=== PATIENT | female | born 1995 | race Caucasian/White ===

== ENCOUNTER 2020-07-27 11:57 | Outpatient (CLI) | payer OTHER ==
[2020-07-27 13:45] LABS: Appearance,Urine Clear (Clear); Bilirubin,Urine Negative (Negative); Blood,Urine Negative (Negative); Color,Urine Colorless; Glucose,Urine (UA) Negative (Negative); Ketones,Urine Negative (Negative); Leukocyte Esterase,Urine Negative (Negative); Nitrite,Urine Negative (Negative); Protein,Urine Negative (Negative); Specific Gravity,Urine 1.005 (1.001-1.035); Urobilinogen,Urine <2.0 mg/dL (<2.0)
[2020-07-27 14:18] VITALS: BP 134/80; PULSE 94; RESP 18; TEMP 97.6
--- NOTE | 2020-10-19 07:53 | P.MSEPDOC ---
Presenting Problems - Arrival Data Date of Arrival on Unit: 07/27/20 Time of Arrival on Unit: 12:00 Mode of Transport: Ambulatory - Complaint OB-Reason for Admission/Chief Complaint: Other Comment: Greenish thick mucousy discharge. Medical History - Information : 4 Para: 2 Term: 2 : 0 Abortions: Spontaneous or Elective: 1 Number of Living Children: 2 - Gestational Age Gestational Age by ZIYAD (wks/days): 19 Weeks and 5 Days Review of Systems - Review of Systems Constitutional: No problems Breast: No problems ENT: No problems Cardiovascular: No problems Respiratory: No problems Gastrointestinal: No problems Genitourinary: No problems Musculoskeletal: No problems Neurological: No problems Skin: No problems Vital Signs - Temperature Temperature: 97.6 F Temperature Source: Temporal Artery Scan - Pulse Pulse Oximetery Pulse Rate: 94 Pulse Assessment Method: Automatic Cuff - Respirations Respiratory Rate: 18 O2 Sat by Pulse Oximetry: 99 - Blood Pressure Right Arm Sitting Blood Pressure: 134/80 Blood Pressure Mean: 98 Blood Pressure Source: Automatic Cuff Medical Screen Scoring (Pre) - Cervical Exam Dilation: 0 cm = 0 Membranes: Intact - Uterine Contractions Frequency: N/A Duration: N/A Intensity: N/A - Maternal Vital Signs Maternal Temperature: N/A Maternal Blood Pressure: N/A Signs of Preeclampsia: N/A Maternal Respirations: N/A - Maternal Trauma Maternal Trauma: N/A - Assessment - Baby A Baseline FHR: 140 - Total Score - Baby A Total Score - Baby A: 0 - Total Score - Baby B Total Score - Baby B: 0 - Total Score - Baby C Total Score - Baby C: 0 - Level of Risk - Baby A Level of Risk - Baby A: Low (0-5) - Level of Risk - Baby B Level of Risk - Baby B: Low (0-5) - Level of Risk - Baby C Level of Risk - Baby C: Low (0-5) Physician Notification (Pre) - Physician Notified Physician Notified Date: 07/27/20 Physician Notified Time: 14:00 New Order Received: Yes Disposition - Disposition OB Disposition: Physician follow up in office, Discharge to home, Written follow up instructions reviewed Discharge Date: 07/27/20 Discharge Time: 14:03 I agree with the RN Medical Screening Exam: Yes Case reviewed; plan agreed upon as documented in EMR&OBIX.: Yes Comments: Patient was neither seen nor examined by me Diagnosis: RELATED CONDITIONS, UNSPECIFIED, SECOND TRIMESTER
== END 2020-07-27 14:03 | disposition home or self-care (01) ==
LOC: FBPOP 11:57
PROVIDERS: ATTEND Obstetrics & Gynecology
DX: O26.92 Pregnancy related conditions, unspecified, second trimester (principal); Z3A.19 19 weeks gestation of pregnancy
CPT/HCPCS: 81003

== ENCOUNTER 2020-11-04 15:39 | Emergency (ER) | payer OTHER ==
[2020-11-04 15:46] VITALS: RESP 18; TEMP 98.1
[2020-11-04] MEDS ORDERED: LIDOCAINE 1% INJ 10MG/ML (20 ML MDV) SQ ONE (16:21)
[2020-11-04] MEDS ORDERED: CLINDAMYCIN 150 MG CAP PO STA (17:20)
--- NOTE | 2020-11-04 17:20 | ED ---
General Adult HPI - General Chief complaint: Skin/Abscess/Foreign Body Stated complaint: Abscess on buttock,35 weeks Source: patient Mode of arrival: ambulatory Limitations: no limitations - History of Present Illness Initial comments: 25-year-old female presents to the emergency room for a chief complaint of abscess on the left buttock. Patient states she noticed this about 4 days ago. States that she went to urgent care 3 days ago in the gave her Keflex. Patient reports she does have a history of MRSA. She reports no incision and drainage was performed. Patient denies fevers or chills. She states that it does not seem to be getting better with just the Keflex. Patient is 35 weeks as well.Patient has no other complaints at this time including shortness of breath, chest pain, abdominal pain, nausea or vomiting, headache, or visual changes. - Related Data Home Medications Medication Instructions Recorded Confirmed Aspirin [Adult Low Dose Aspirin EC] 81 mg PO DAILY 07/27/20 07/27/20 Pnv No.95/Ferrous Fum/Folic AC 1 each PO DAILY 07/27/20 07/27/20 [ Multivitamin Tablet] Previous Rx's Medication Instructions Recorded Clindamycin [Cleocin] 450 mg PO Q8H 7 Days #63 cap 11/04/20 Allergies Allergy/AdvReac Type Severity Reaction Status Date / Time No Known Allergies Allergy Verified 11/04/20 15:46 Review of Systems ROS Statement: Those systems with pertinent positive or pertinent negative responses have been documented in the HPI. ROS Other: All systems not noted in ROS Statement are negative. Past Medical History Past Medical History: No Reported History History of Any Multi-Drug Resistant Organisms: MRSA Date of last positivie culture/infection: 2010 MDRO Source:: Buttock Past Surgical History: No Surgical Hx Reported Past Anesthesia/Blood Transfusion Reactions: No Reported Reaction Past Psychological History: No Psychological Hx Reported Smoking Status: Former smoker Past Alcohol Use History: None Reported Past Drug Use History: None Reported - Past Family History Mother Family Medical History: Hypertension General Exam Limitations: no limitations General appearance: alert, in no apparent distress Head exam: Present: atraumatic, normocephalic, normal inspection Eye exam: Present: normal appearance, PERRL, EOMI. Absent: scleral icterus, conjunctival injection, periorbital swelling ENT exam: Present: normal exam, mucous membranes moist Neck exam: Present: normal inspection, full ROM. Absent: tenderness, meningismus, lymphadenopathy Respiratory exam: Present: normal lung sounds bilaterally. Absent: respiratory distress, wheezes, rales, rhonchi, stridor Cardiovascular Exam: Present: regular rate, normal rhythm, normal heart sounds. Absent: systolic murmur, diastolic murmur, rubs, gallop, clicks GI/Abdominal exam: Present: soft, normal bowel sounds. Absent: distended, tenderness, guarding, rebound, rigid Back exam: Present: other (Patient has a 2 cm x 2 cm abscess noted to the inferior left buttock. This does not involve the anus or rectum. There is minimal erythema surrounding the area. Erythema or abscess does not spread to the perineum) Course Vital Signs 11/04/20 15:43 Temperature 98.1 F Pulse Rate 115 H Respiratory 18 Rate Blood Pressure 116/83 O2 Sat by Pulse 96 Oximetry Procedures - Incision & Drainage Consent Obtained: verbal consent Indication: abscess Site: buttock Size (cm): 2 Anesthetic Used: lidocaine 1% Amount (mLs): 1 I&D Cleaning Method: Chloroprep Sterile Field Used?: Yes Scalpel Used: #11 I&D Drainage Obtained: Pus, Blood Packing: Iodoform Patient Tolerated Procedure: well, no complications Medical Decision Making - Medical Decision Making Patient has abscess of the left buttock. It is not perianal or rectal. No fevers. Patient was put on Keflex without incision or drainage 3 days ago she does have a history of MRSA. Patient is 35 weeks . I was able to incise and drain the area, purulent material expelled. Culture pending. I will switch patient from cleft flex to clindamycin as this is generally safe in with a category B rating. This will cover for MRSA as she does have a history. Discussed warm compresses and sits baths. Discussed monitoring for worsening symptoms and returning if these occur. She will otherwise follow up with primary care or CURATORIAL ASSISTANT. I discussed this case with attending Dr. Andrews who agrees with this assessment and treatment plan. Disposition Clinical Impression: Abscess Disposition: HOME SELF-CARE Condition: Good Instructions (If sedation given, give patient instructions): Abscess Incision and Drainage (ED) Additional Instructions: Please take antibiotics as directed. Please apply warm compresses or do warm baths several times daily to promote drainage. If gauze does not come out of wound in the next 2-3 days remove it by gently pulling on it herself. Take clindamycin instead of Keflex. Follow-up with your doctor in one to 2 days for a recheck. If symptoms are worsening, abscess is getting bigger, redness is spreading, or getting fevers, or any other worsening symptoms return to the ER. Prescriptions: Clindamycin [Cleocin] 450 mg PO Q8H 7 Days #63 cap Is patient prescribed a controlled substance at d/c from ED?: No Referrals: Tirston Villegas MD [Primary Care Provider] - 1-2 days Time of Disposition: 17:19
[2020-11-04 17:34] VITALS: BP 106/61; PULSE 89
== END 2020-11-04 17:35 | disposition home or self-care (01) ==
LOC: EC 15:39
DX: O99.713 Diseases of the skin and subcutaneous tissue complicating pregnancy, third trimester (principal); L02.31 Cutaneous abscess of buttock; Z86.14 Personal history of Methicillin resistant Staphylococcus aureus infection; Z87.891 Personal history of nicotine dependence; Z79.899 Other long term (current) drug therapy; Z3A.35 35 weeks gestation of pregnancy
CPT/HCPCS: 87070; 87205; 10060; 99283; J2001

== ENCOUNTER 2020-11-06 12:58 | Outpatient (CLI) | payer OTHER ==
[2020-11-06 14:59] VITALS: BP 138/80; PULSE 101; RESP 16; TEMP 97.7
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
== END 2020-11-06 14:47 | disposition home or self-care (01) ==
LOC: FBPOP 12:58
PROVIDERS: ATTEND Obstetrics & Gynecology
DX: O26.893 Other specified pregnancy related conditions, third trimester (principal); T14.90XA Injury, unspecified, initial encounter; Z3A.34 34 weeks gestation of pregnancy
CPT/HCPCS: 59025; G0463; 99213

== ENCOUNTER 2020-12-06 09:59 | Outpatient (CLI) | payer OTHER ==
[2020-12-06 10:46] VITALS: BP 114/68; PULSE 98; RESP 18; TEMP 97.5
--- NOTE | 2020-12-27 02:24 | P.MSEPDOC ---
Presenting Problems - Arrival Data Date of Arrival on Unit: 12/06/20 Time of Arrival on Unit: 09:55 Mode of Transport: Ambulatory - Complaint OB-Reason for Admission/Chief Complaint: Rule Out SROM Comment: leaking at 0400 with irregular contractions Medical History - Information : 3 Para: 2 Term: 2 : 0 Abortions: Spontaneous or Elective: 0 Number of Living Children: 2 - Gestational Age Gestational Age by ZIYAD (wks/days): 38 Weeks and 4 Days - History Comment: hx of preeclampsia, on ASA Review of Systems - Review of Systems Constitutional: No problems Breast: No problems ENT: No problems Cardiovascular: No problems Respiratory: No problems Gastrointestinal: No problems Genitourinary: No problems Musculoskeletal: No problems Neurological: No problems Skin: No problems Vital Signs - Temperature Temperature: 97.5 F Temperature Source: Oral - Pulse Right Sitting Brachial Pulse Rate: 98 Pulse Assessment Method: Automatic Cuff - Respirations Respiratory Rate: 18 Oxygen Delivery Method: Room Air O2 Sat by Pulse Oximetry: 98 - Blood Pressure Right Arm Sitting Blood Pressure: 114/68 Blood Pressure Mean: 83 Blood Pressure Source: Automatic Cuff Medical Screen Scoring (Pre) - Cervical Exam Dilation: 1-3 cm = 1 Effacement: More than 50% = 2 Membranes: Intact - Uterine Contractions Frequency: > 5 minutes apart = 1 Duration: N/A Intensity: N/A - Maternal Vital Signs Maternal Temperature: N/A Maternal Blood Pressure: N/A Signs of Preeclampsia: N/A Maternal Respirations: N/A - Maternal Trauma Maternal Trauma: N/A - Assessment - Baby A Baseline FHR: 125 Heart Rate - NICHD Category: Category I (Normal) = 0 NST: Reactive Position: N/A - Total Score - Baby A Total Score - Baby A: 4 - Total Score - Baby B Total Score - Baby B: 4 - Total Score - Baby C Total Score - Baby C: 4 - Level of Risk - Baby A Level of Risk - Baby A: Low (0-5) - Level of Risk - Baby B Level of Risk - Baby B: Low (0-5) - Level of Risk - Baby C Level of Risk - Baby C: Low (0-5) Physician Notification (Pre) - Physician Notified Physician Notified Date: 12/06/20 Physician Notified Time: 01:40 New Order Received: Yes - Notification Comment Comment: amnisure neg. cx unchanged. ok to dc home. follow up in the office tomorrow at 1045 as scheduled. Disposition - Disposition OB Disposition: Discharge to home Discharge Date: 12/06/20 Discharge Time: 10:42 I agree with the RN Medical Screening Exam: Yes Case reviewed; plan agreed upon as documented in EMR&OBIX.: Yes Diagnosis: FALSE LABOR AT OR AFTER 37 COMPLETED WEEKS OF GESTATION
== END 2020-12-06 10:45 | disposition home or self-care (01) ==
LOC: FBPOP 09:59
PROVIDERS: ATTEND Obstetrics & Gynecology
DX: O47.1 False labor at or after 37 completed weeks of gestation (principal); Z3A.38 38 weeks gestation of pregnancy
CPT/HCPCS: 59025; 84112; G0463; 99213

== ENCOUNTER 2020-12-11 06:15 | Inpatient (IN) | payer OTHER ==
[2020-12-11] MEDS ORDERED: METHYLERGONOVINE 0.2 MG/ML 1 ML AMP IM PRN (06:53)
[2020-12-11] MEDS ORDERED: CARBOPROST TROMETHAMINE 250 MCG/ML 1 ML AMP IM PRN (06:53)
[2020-12-11] MEDS ORDERED: TERBUTALINE 1 MG/ML VIAL SQ PRN (06:53)
[2020-12-11] MEDS ORDERED: PENICILLIN G POTASSIUM 5,000,000 UNIT in DEXTROSE 5% IN WATER 100 ML IVPB STA ×4 (06:53→07:52)
[2020-12-11] MEDS ORDERED: LIDOCAINE 0.5% (PF) 5 MG/ML (50 ML SDV) SQ PRN (06:53)
[2020-12-11] MEDS ORDERED: OXYTOCIN 10 UNIT/ML 1 ML VIAL IM PRN (06:53)
[2020-12-11] MEDS: LACTATED RINGERS 1,000 ML IV SCH ×3 (07:29→15:14)
[2020-12-11] MEDS: OXYTOCIN 30 UNITS/500 ML NS 30 UNIT in SALINE 1 500ML.BAG IV SCH ×2 (07:31→20:50)
[2020-12-11 08:04] LABS: Basophils % (A) 0 %; Eosinophils # (A) 0.1 k/uL (0-0.7); Eosinophils % (A) 2 %; HCT 32.8 % (34.0-46.0); HGB 11.1 gm/dL (11.4-16.0); Lymphocytes # (A) 1.8 k/uL (1.0-4.8); Lymphocytes % (A) 25 %; MCHC 33.8 g/dL (31.0-37.0); MCV 88.8 fL (80.0-100.0); Mean Platelet Volume 8.1; Monocytes # (A) 0.5 k/uL (0-1.0); Monocytes % (A) 7 %; Neutrophils # (A) 4.6 k/uL (1.3-7.7); Neutrophils % (A) 65 %; Platelet Count 247 k/uL (150-450); RBC 3.69 m/uL (3.80-5.40); WBC 7.1 k/uL (3.8-10.6)
--- NOTE | 2020-12-11 08:07 | P.HPOB ---
History of Present Illness H&P Date: 12/11/20 Chief Complaint: Here for elective induction of labor This is a 25-year-old white female 4 para 2012 EDC 12/16/2020 at 39-2/7 weeks' gestation. Fetus is been active throughout the . She denies vaginal bleeding or fluid leakage. Obstetric history is significant for blood type A positive, rubella status immune. VDRL testing, urine culture, hepatitis B surface antigen, HIV testing, gonorrhea and chlamydia cultures all negative. 24 hour urine with increased protein. Group B strep cultures negative. One-hour Glucola within normal limits. Past medical history is significant for MRSA of the buttocks in 2010, borderline hypertension. Surgical history significant for wisdom teeth extracted in the past. Current medications vitamins daily. ALLERGIES none known. Family history significant for hypertension. Obstetric history 2 previous vaginal deliveries at 39 weeks gestation, unremarkable. 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 She denies alcohol or drug use. On exam patient is 5 foot 5 inches, 208 pounds, blood pressure 120/76 on admission. Vital signs are stable and she is afebrile. General physical exam is within normal limits. Cervix is 2-3 cm dilated, 60% effaced, -2 station, vertex presentation. Artificial amniorrhexis reveals clear fluid. heart tones consistent with reactive NST. Impression: 39-2/7 weeks intrauterine , positive group B strep cultures, here for elective induction of labor. All signs reassuring. History of chronic proteinuria, and preeclampsia noted in the past. Plan: Oxytocin per hospital protocol. Close maternal and surveillance. Antibiotic prophylaxis for positive group B strep cultures. Anticipate normal spontaneous vaginal delivery. Review of Systems All systems: negative Constitutional: Reports as per HPI Past Medical History Past Medical History: Hypertension Additional Past Medical History / Comment(s): Pt states her primary doctor has her on "water pill" when not History of Any Multi-Drug Resistant Organisms: MRSA Date of last positivie culture/infection: 10/09/20 MDRO Source:: Buttock Past Surgical History: No Surgical Hx Reported Past Anesthesia/Blood Transfusion Reactions: No Reported Reaction Past Psychological History: No Psychological Hx Reported Smoking Status: Never smoker Past Alcohol Use History: None Reported Past Drug Use History: None Reported - Past Family History Mother Family Medical History: Hypertension Medications and Allergies Home Medications Medication Instructions Recorded Confirmed Type Aspirin [Adult Low Dose Aspirin EC] 81 mg PO DAILY 07/27/20 12/11/20 History Pnv No.95/Ferrous Fum/Folic AC 1 each PO DAILY 07/27/20 12/11/20 History [ Multivitamin Tablet] Allergies Allergy/AdvReac Type Severity Reaction Status Date / Time No Known Allergies Allergy Verified 11/06/20 13:16 Exam Vital Signs Temp Pulse Resp BP Pulse Ox 12/11/20 06:51 96.6 F L 76 16 120/76 99 Intake and Output 12/10/20 12/11/20 12/11/20 22:59 06:59 14:59 Other: Weight 94.347 kg See dictation under HPI please Assessment and Plan Assessment: 39-2/7 weeks intrauterine , positive group B strep cultures, here for elective induction of labor. Blood pressure and all other signs reassuring. Plan: Penicillin G per hospital protocol. Oxytocin per hospital protocol. Close mate rnal and surveillance. Anticipate normal spontaneous vaginal delivery. Time with Patient: Less than 30
[2020-12-11] MEDS: PENICILLIN G POTASSIUM 2,500,000 UNIT in DEXTROSE 5% IN WATER 100 ML IVPB SCH ×6 (12:30→20:38)
[2020-12-11] MEDS ORDERED: fentaNYL (PF) 50 MCG/ML 5 ML AMP ONE (12:44)
[2020-12-11] MEDS ORDERED: ROPIVACAINE 5MG/ML 20ML VIAL ONE (12:44)
[2020-12-11] MEDS ORDERED: SODIUM CHLORIDE 0.9% 100 ML BAG ONE (12:44)
[2020-12-11] MEDS ORDERED: diphenhydrAMINE ELIXIR 25 MG/10 ML CUP PO PRN (19:07)
[2020-12-11] MEDS ORDERED: BENZOCAINE/MENTHOL SPRAY 1 GM/SPRAY AEROSOL TOPICAL PRN (19:07)
[2020-12-11] MEDS ORDERED: SIMETHICONE 80 MG CHEWABLE PO PRN (19:07)
[2020-12-11] MEDS ORDERED: diphenhydrAMINE 50 MG CAP PO PRN (19:07)
[2020-12-11] MEDS ORDERED: diphenhydrAMINE 25 MG CAP PO PRN (19:07)
[2020-12-11] MEDS ORDERED: HYDROCORTISONE 2.5% RECTAL CREAM 30 GM TUBE RECTAL PRN (19:07)
[2020-12-11] MEDS ORDERED: LANOLIN CREAM 5 GM TUBE TOPICAL PRN (19:07)
[2020-12-11] MEDS ORDERED: diphenhydrAMINE 50 MG/ML 1 ML VIAL IVP PRN ×2 (19:07)
[2020-12-11] MEDS ORDERED: ZOLPIDEM 5 MG TAB PO PRN (19:07)
--- NOTE | 2020-12-11 19:07 | P.PROBDLV ---
Vaginal Delivery Note - . Vaginal Delivery Note: This is a 25-year-old white female 4 para 2012 EDC 12/16/2020 at 39-2/7 weeks' gestation. Patient presented for induction with favorable multiparous cervix. She has a history of preeclampsia with previous pregnancies, blood pressure normal currently. Elevated urinary protein has been documented. Blood type A+, group B strep cultures positive, rubella status immune. Please see dictated history and physical for details. Artificial amniorrhexis revealed clear fluid. Oxytocin was started and titrated per hospital protocol. Patient became uncomfortable and requested an epidural, this was placed without difficulty. She became completely dilated at 1845 hrs. and began the second stage of labor at that time. heart rate was reassuring throughout the first and second stages of labor. With excellent maternal expulsive efforts after perineal body was prepped and draped, infant's head delivered occiput anterior and she restituted accordingly. There was no nuchal cord noted. The left or anterior shoulder was delivered from underneath the pubic symphysis at which time the oropharynx, nasopharynx, and external nares are bulb suctioned. Patient is officially delivered of a liveborn female at 1852 hours. Umbilical cord is doubly clamped and ligated, she is handed to waiting nurses for evaluation where scores of 9 and 9 at one and 5 minutes respectively are given. Placentas delivered spontaneously, it is inspected and noted to be intact with trivascular cord at 1856 hours. At this time the perineal body is redraped. Uterus is massaged. Careful inspection of the cervix, vagina, perineum, periurethral, and perirectal areas revealed a 1 skin trae on the right inner labia minora. It is now bleeding and therefore left to heal by secondary intention. Total estimated blood loss 250 mL's. All sponge needle and enhancement counts are correct. Patient and her are allowed to begin the bonding experience in the LDR.
[2020-12-11] MEDS: IBUPROFEN 600 MG TAB PO SCH (20:49)
[2020-12-11] MEDS: SENNOSIDES-DOCUSATE SODIUM 1 EACH TAB PO SCH (20:49)
[2020-12-11] MEDS: ACETAMINOPHEN TAB 325 MG TAB PO PRN (23:41)
[2020-12-12] MEDS: IBUPROFEN 600 MG TAB PO SCH ×4 (02:32→17:32)
[2020-12-12] MEDS: SENNOSIDES-DOCUSATE SODIUM 1 EACH TAB PO SCH ×2 (08:20→21:02)
[2020-12-12] MEDS: ACETAMINOPHEN TAB 325 MG TAB PO PRN ×3 (08:21→21:02)
--- NOTE | 2020-12-12 08:47 | P.DS ---
Providers Date of admission: 12/11/20 06:15 Expected date of discharge: 12/12/20 Attending physician: Maude Miller Primary care physician: Stated None Hospital Course: This is a 25-year-old white female 4 para 2012 EDC 12/16/2020 at 39-2/7 weeks' gestation. Patient presented for induction with favorable multiparous cervix. Fetus has been active throughout the . is essentially unremarkable, group B strep cultures positive, rubella status immune, blood type A+. Please see dictated history and physical for details. Penicillin G was given 3 doses per hospital protocol. Oxytocin was started and titrated per hospital protocol. Patient went on to deliver vaginally a liveborn female with scores of 9 and 9 at one and 5 minutes respectively. Estimated blood loss 250 mL's. No lacerations needing repair. Infant weighed 7 lbs. 15 oz. or 3590 g. Please see dictated or note for details. This morning the patient is doing well. She is voiding, ambulate in, passing flatus without difficulty. Vital signs are stable and she is afebrile. Fundus is firm and in the midline, symmetric and 18 week size. Breast-feeding is going well. Breast pump prescription has been provided. is doing well. Patient is judged be in very good condition for discharge home. She will follow-up in the office with me in 6 weeks. I have reminded her no intercourse, tampons or douching. She will use [id number] Advil or Aleve, or Motrin as needed for pain. She will continue vitamin daily. She will call with any fevers shakes or chills, foul smelling or copious lochia, wi th the passage of large blood clots, with any pain not alleviated by [id number] products, or indeed with any concerns. We have discussed briefly contraceptive options and we will discuss this further in the office. Assessment: Doing well day #1 Patient Condition at Discharge: Good Plan - Discharge Summary Discharge Rx Participant: No New Discharge Prescriptions: No Action Pnv No.95/Ferrous Fum/Folic AC [ Multivitamin Tablet] 1 each PO DAILY Aspirin [Adult Low Dose Aspirin EC] 81 mg PO DAILY Discharge Medication List Aspirin [Adult Low Dose Aspirin EC] 81 mg PO DAILY 07/27/20 [History] Pnv No.95/Ferrous Fum/Folic AC [ Multivitamin Tablet] 1 each PO DAILY 07/27/20 [History] Follow up Appointment(s)/Referral(s): Maude Miller MD [STAFF PHYSICIAN] - 6 Weeks Discharge Disposition: HOME SELF-CARE
[2020-12-13] MEDS: IBUPROFEN 600 MG TAB PO SCH ×3 (00:10→14:32)
[2020-12-13] MEDS: ACETAMINOPHEN TAB 325 MG TAB PO PRN (04:36)
[2020-12-13 08:53] VITALS: BP 117/90; PULSE 66; RESP 17; TEMP 98
[2020-12-13] MEDS: SENNOSIDES-DOCUSATE SODIUM 1 EACH TAB PO SCH (09:45)
== END 2020-12-13 15:45 | disposition home or self-care (01) | DRG 807 ==
LOC: 4FBP 06:15
PROVIDERS: ADMIT Obstetrics & Gynecology; ATTEND Obstetrics & Gynecology
PROC: 00HU33Z Insertion of Infusion Device into Spinal Canal, Percutaneous Approach (ICD-10-PCS; principal; 2020-12-11)
PROC: 3E033VJ Introduction of Other Hormone into Peripheral Vein, Percutaneous Approach (ICD-10-PCS; principal; 2020-12-11)
PROC: 10907ZC Drainage of Amniotic Fluid, Therapeutic from Products of Conception, Via Natural or Artificial Opening (ICD-10-PCS; principal; 2020-12-11)
PROC: 3E0R3BZ Introduction of Anesthetic Agent into Spinal Canal, Percutaneous Approach (ICD-10-PCS; principal; 2020-12-11)
PROC: 10E0XZZ Delivery of Products of Conception, External Approach (ICD-10-PCS; principal; 2020-12-11)
DX: O99.824 Streptococcus B carrier state complicating childbirth (principal); Z37.0 Single live birth; R03.0 Elevated blood-pressure reading, without diagnosis of hypertension; Z3A.39 39 weeks gestation of pregnancy; Z79.82 Long term (current) use of aspirin; Z79.899 Other long term (current) drug therapy; Z86.14 Personal history of Methicillin resistant Staphylococcus aureus infection; Z82.49 Family history of ischemic heart disease and other diseases of the circulatory system
CPT/HCPCS: 85025; 86850; 86900; 86901

== ENCOUNTER 2021-08-13 21:01 | Emergency (ER) | payer OTHER ==
[2021-08-13 21:05] VITALS: BP 132/85; PULSE 93; RESP 18; TEMP 98.2
[2021-08-13] MEDS ORDERED: CEPHALEXIN 500MG STARTER PACK 4 CAP BTL PO STA (21:16)
--- NOTE | 2021-08-13 21:18 | ED ---
General Adult HPI - General Chief complaint: Headache Stated complaint: Bad headache Time Seen by Provider: 08/13/21 21:08 Source: patient, RN notes reviewed Mode of arrival: ambulatory Limitations: no limitations - History of Present Illness Initial comments: 26-year-old female presents emergency department chief complaint of forehead swelling, infection of her scalp. Patient states this started a few days ago blood pimple which pop states her swelling, painful area around the noticed some forehead swelling today. No fever or chills no neck pain or neck stiffness. Patient statesswelling was concerned of visual changes no pain with ocular movement. - Related Data Home Medications Medication Instructions Recorded Confirmed Aspirin [Adult Low Dose Aspirin EC] 81 mg PO DAILY 07/27/20 12/11/20 Pnv No.95/Ferrous Fum/Folic AC 1 each PO DAILY 07/27/20 12/11/20 [ Multivitamin Tablet] Previous Rx's Medication Instructions Recorded Cephalexin [Keflex] 500 mg PO Q6HR #40 cap 08/13/21 Allergies Allergy/AdvReac Type Severity Reaction Status Date / Time No Known Allergies Allergy Verified 08/13/21 21:05 Review of Systems ROS Statement: Those systems with pertinent positive or pertinent negative responses have been documented in the HPI. ROS Other: All systems not noted in ROS Statement are negative. Past Medical History Past Medical History: Hypertension Additional Past Medical History / Comment(s): Pt states her primary doctor has her on "water pill" when not History of Any Multi-Drug Resistant Organisms: MRSA Date of last positivie culture/infection: 05/31/11 MDRO Source:: Unknown Past Surgical History: No Surgical Hx Reported Past Anesthesia/Blood Transfusion Reactions: No Reported Reaction Past Psychological History: No Psychological Hx Reported Smoking Status: Never smoker Past Alcohol Use History: None Reported Past Drug Use History: None Reported - Past Family History Mother Family Medical History: Hypertension General Exam Limitations: no limitations General appearance: alert, in no apparent distress Head exam: Present: atraumatic, normocephalic. Absent: normal inspection (mild forehead swelling noted, there is an open abscess at the hairline) Eye exam: Present: normal appearance, PERRL, EOMI. Absent: scleral icterus, conjunctival injection, periorbital swelling, periorbital tenderness Pupils: Present: normal accommodation ENT exam: Present: normal exam, normal oropharynx, mucous membranes moist Neck exam: Present: normal inspection, full ROM. Absent: tenderness, meningismus, lymphadenopathy Respiratory exam: Present: normal lung sounds bilaterally. Absent: respiratory distress, wheezes, rales, rhonchi, stridor Cardiovascular Exam: Present: regular rate, normal rhythm, normal heart sounds. Absent: systolic murmur, diastolic murmur, rubs, gallop, clicks Course Vital Signs 08/13/21 21:02 Temperature 98.2 F Pulse Rate 93 Respiratory 18 Rate Blood Pressure 132/85 O2 Sat by Pulse 98 Oximetry Medical Decision Making - Medical Decision Making patient has an infection, abscess of the hairline, there is mild surrounding edema related to this patient was started on Keflex will be discharged in stable condition. Disposition Clinical Impression: Abscess, scalp Disposition: HOME SELF-CARE Condition: Stable Instructions (If sedation given, give patient instructions): Abscess (ED) Additional Instructions: Please return to the Emergency Department if symptoms worsen or any other concerns. Prescriptions: Cephalexin [Keflex] 500 mg PO Q6HR #40 cap Is patient prescribed a controlled substance at d/c from ED?: No Referrals: Triston Villegas MD [Primary Care Provider] - 1-2 days Time of Disposition: 21:17
== END 2021-08-13 21:38 | disposition home or self-care (01) ==
LOC: EC 21:01
DX: L02.811 Cutaneous abscess of head [any part, except face] (principal); I10 Essential (primary) hypertension; Z79.82 Long term (current) use of aspirin
CPT/HCPCS: 99283